=== PATIENT | female | born 1960 | race Caucasian/White ===

== ENCOUNTER 2017-09-29 10:29 | Day surgery (SDC) | payer OTHER ==
[2017-09-29] MEDS: NS 1,000 ML IV (10:40)
[2017-09-29] MEDS ORDERED: PROPOFOL 200 MG/20 ML VIAL As Ordered ×2 (11:02→11:03)
[2017-09-29] MEDS ORDERED: LIDOCAINE 2% INJ 100 MG/5 ML SDV (FOR ANES.) As Ordered (11:03)
== END 2017-09-29 12:35 | disposition home or self-care (01) ==
LOC: M OPP 10:29
DX: Z12.11 Encounter for screening for malignant neoplasm of colon (principal); Z86.010 Personal history of colon polyps; K57.30 Diverticulosis of large intestine without perforation or abscess without bleeding; G47.30 Sleep apnea, unspecified; E78.00 Pure hypercholesterolemia, unspecified; M12.9 Arthropathy, unspecified; Z79.82 Long term (current) use of aspirin; Z79.899 Other long term (current) drug therapy; Z88.8 Allergy status to other drugs, medicaments and biological substances; Z90.710 Acquired absence of both cervix and uterus; Z87.891 Personal history of nicotine dependence; Z87.442 Personal history of urinary calculi
CPT/HCPCS: 45378

== ENCOUNTER → 2017-11-24 | Outpatient (REF) | payer OTHER ==
[2017-11-28 00:07] LABS: A1A FOR PHENOTYPE 130 mg/dL (90-200)
== END ==
LOC: M LAB REF 13:10
DX: Z83.49 Family history of other endocrine, nutritional and metabolic diseases (principal)

== ENCOUNTER → 2018-09-26 | Outpatient (CLI) | payer OTHER ==
[~2018-09-26] MED LIST: /HYDR.5CR EXT; ASPI81CH33 PO; ASPI81TA7 PO; BACL-60 GT; BACL10TA2 PO; BACL1TAB9 PO; DIOV80TA2 PO; FURO20TA2 PO; LASI20TA3 PO; LOSA100T PO; MULTCAP PO; SIMV40TA2 PO; SIMV40TA20 PO; VALS160T PO; VALS80TA PO; VIBR100C PO; VITA200015 PO; VITAMIN D 3
[2018-09-29 14:07] LABS: Lyme Disease IgG Ab 18 kDa Ban Present (.); Lyme Disease IgG Ab 23 kDa Ban Present (.); Lyme Disease IgG Ab 28 kDa Ban Present (.); Lyme Disease IgG Ab 30 kDa Ban Absent (.); Lyme Disease IgG Ab 39 kDa Ban Present (.); Lyme Disease IgG Ab 41 kDa Ban Present (.); Lyme Disease IgG Ab 45 kDa Ban Absent (.); Lyme Disease IgG Ab 58 kDa Ban Absent (.); Lyme Disease IgG Ab 66 kDa Ban Absent (.); Lyme Disease IgG Ab 93 kDa Ban Absent (.); Lyme Disease IgG West Blot Int Positive (.); Lyme Disease IgG/IgM Antibodie 2.85 ISR (0.00-0.90); Lyme Disease IgM Ab 23 kDa Ban Present (.); Lyme Disease IgM Ab 39 kDa Ban Absent (.); Lyme Disease IgM Ab 41 kDa Ban Absent (.); Lyme Disease IgM Ab Quantitati 2.24 index (0.00-0.79); Lyme Disease IgM West Blot Int Negative (.)
== END ==
LOC: M WUC 14:12
PROVIDERS: ATTEND Physician Assistant
DX: L03.113 Cellulitis of right upper limb (principal); S40.861A Insect bite (nonvenomous) of right upper arm, initial encounter; X58.XXXA Exposure to other specified factors, initial encounter; Y92.89 Other specified places as the place of occurrence of the external cause

== ENCOUNTER → 2020-06-08 | Outpatient (CLI) | payer OTHER ==
[2020-06-08 17:22] LABS: ALBUMIN 3.7 GM/DL (3.2-5.2); ALT/SGPT 128 U/L (12-78); BILIRUBIN,TOTAL 0.5 MG/DL (0.2-1.0); BLOOD UREA NITROGEN 15 MG/DL (7-18); CALCIUM LEVEL 9.1 MG/DL (8.5-10.1); CARBON DIOXIDE LEVEL 29 MEQ/L (21-32); CHLORIDE LEVEL 108 MEQ/L (98-107); CREATININE FOR GFR 0.72 MG/DL (0.55-1.30); GLOMERULAR FILTRATION RATE > 60.0 (>51); GLUCOSE, FASTING 95 MG/DL (70-100); MAGNESIUM LEVEL 2.1 MG/DL (1.8-2.4); NT-PRO BNP 1118 PG/ML (<125); POTASSIUM SERUM 4.6 MEQ/L (3.5-5.1); SODIUM LEVEL 142 MEQ/L (136-145); TOTAL PROTEIN 6.7 GM/DL (6.4-8.2)
--- NOTE | 2020-06-08 17:53 | REP ---
INDICATION: HEART FAILURE, UNSPECIFIED / LABS 1ST COMPARISON: 12/23/2010. TECHNIQUE: PA/Lateral FINDINGS: Lungs: Clear, no infiltrate. Heart: Upper limits of normal in size. Mediastinum: Mediastinal silhouette unremarkable. Pleural angles: Unremarkable.. Bones and soft tissues: There are degenerative changes of the spine without compression deformity.r IMPRESSION: No acute pulmonary disease. <Electronically signed by Paulino Ledezma > 06/08/20 [id number]
== END ==
LOC: M LAB 15:55
PROVIDERS: ATTEND Internal Medicine Cardiovascular Disease
DX: I50.9 Heart failure, unspecified (principal)

== ENCOUNTER → 2020-06-13 | Outpatient (CLI) | payer OTHER ==
[2020-06-13 12:04] LABS: ALBUMIN 4.1 GM/DL (3.2-5.2); BLOOD UREA NITROGEN 14 MG/DL (7-18); CALCIUM LEVEL 9.8 MG/DL (8.5-10.1); CARBON DIOXIDE LEVEL 28 MEQ/L (21-32); CHLORIDE LEVEL 104 MEQ/L (98-107); GLOMERULAR FILTRATION RATE > 60.0 (>51); GLUCOSE, FASTING 106 MG/DL (70-100); PHOSPHORUS LEVEL 3.2 MG/DL (2.5-4.9); POTASSIUM SERUM 4.4 MEQ/L (3.5-5.1); SODIUM LEVEL 137 MEQ/L (136-145)
== END ==
LOC: M WUC 10:20
PROVIDERS: ATTEND Internal Medicine Cardiovascular Disease
DX: I50.9 Heart failure, unspecified (principal)

== ENCOUNTER 2020-06-22 18:55 | Emergency (ER) | payer OTHER ==
[~2020-06-22] VITALS: Ht 170.2 cm; Wt 118.7 kg
[2020-06-22] MEDS ORDERED: METO1TAB7 (19:04)
[2020-06-22] MEDS ORDERED: TORS10TA3 (19:04)
[2020-06-22] MEDS ORDERED: DIGO0.253 (19:04)
[2020-06-22] MEDS ORDERED: VALS1TAB66 (19:04)
[2020-06-22] MEDS ORDERED: SPIR-10 (19:04)
[2020-06-22] MEDS ORDERED: NS 1,000 ML IV ONE (19:35)
[2020-06-22] MEDS ORDERED: ONDANSETRON 4MG/2ML VIAL IV ONE (19:35)
[2020-06-22 20:16] LABS: BASO # 0.1 10^3/uL (0.0-0.2); BASO % 0.7 % (0.0-1.0); EOS % 0.4 % (0.0-3.0); HEMATOCRIT 49.9 % (36.0-47.0); HEMOGLOBIN 16.5 g/dl (12.0-15.5); LYMPH # 1.3 10^3/uL (1.5-5.0); MEAN CORPUSCULAR HEMOGLOBIN 29.2 pg (27.0-33.0); MEAN CORPUSCULAR HGB CONC 33.1 g/dl (32.0-36.5); MEAN CORPUSCULAR VOLUME 88.2 fl (80.0-96.0); MONO # 0.5 10^3/uL (0.0-0.8); MONO % 4.4 % (2.0-8.0); NEUTROPHILS # 8.7 10^3/uL (1.5-8.5); NEUTROPHILS % 82.1 % (36.0-66.0); PLATELET COUNT, AUTOMATED 267 10^3/uL (150-450); RED BLOOD COUNT 5.66 10^6/uL (4.00-5.40); WHITE BLOOD COUNT 10.5 10^3/uL (4.0-10.0)
[2020-06-22 20:41] LABS: ALBUMIN 4.1 GM/DL (3.2-5.2); BILIRUBIN,DIRECT 0.2 MG/DL (0.0-0.2); BILIRUBIN,TOTAL 0.6 MG/DL (0.2-1.0); TOTAL PROTEIN 7.3 GM/DL (6.4-8.2)
--- NOTE | 2020-06-22 21:06 | REPVR ---
PROCEDURE INFORMATION: Exam: CT Abdomen And Pelvis Without Contrast Exam date and time: 06/22/2020 7:54 PM Age: 59 years old Clinical indication: Left flank pain. TECHNIQUE: Imaging protocol: Computed tomography of the abdomen and pelvis without contrast. Radiation optimization: All CT scans at this facility use at least one of these dose optimization techniques: automated exposure control; mA and/or kV adjustment per patient size (includes targeted exams where dose is matched to clinical indication); or iterative reconstruction. COMPARISON: No relevant prior studies available. FINDINGS: Lungs: There is a 7 mm juxtapleural nodule along the right middle lobe (image 8 of the axial series 204), for which follow-up is not necessary. The lungs were not fully imaged. Heart: No cardiomegaly or pericardial effusion. Liver: Unremarkable. No liver lesion is identified. The contour of the liver is smooth. No hepatomegaly is noted. Gallbladder and bile ducts: No calcified gallstones are noted. No gallbladder wall thickening, pericholecystic fluid, or pericholecystic inflammatory changes are identified. No dilation of the bile ducts is noted. No calcified stones are seen in the common bile duct. Pancreas: Unremarkable. No dilation of the main pancreatic duct is noted. There is no inflammatory fat stranding around the pancreas to suggest acute pancreatitis. Spleen: Unremarkable. No splenomegaly is noted. Adrenal glands: Normal. No adrenal mass is noted. Kidneys and ureters: There is moderate left hydroureteronephrosis. There is a 3 mm calculus in the urethra (image 137 of the axial series 201, image 73 of the coronal series 202, and image 73 of the sagittal series 203). No calculi are noted in the left kidney or ureters. There is a 5 mm nonobstructive calculus in a lower pole calyx of the right kidney and a 4 mm nonobstructive calculus in an upper pole calyx of the right kidney. No right hydronephrosis or right hydroureter is noted. No renal lesion is identified. Stomach and bowel: The stomach is decompressed, limiting its optimal evaluation. The small bowel is unremarkable. There is colonic diverticulosis without evidence for diverticulitis. There is no evidence for a bowel obstruction, colitis, pneumatosis intestinalis, intussusception, volvulus, or perforated viscus. Appendix: The retrocecal appendix is normal. No evidence for appendicitis. Intraperitoneal space: No free air. No ascites. No abscess. Retroperitoneal space: No fluid collection. No mass. Vasculature: The abdominal aorta is normal in caliber. There are mild atherosclerotic calcifications. Lymph nodes: No enlarged lymph nodes. Urinary bladder: The urinary bladder is decompressed, limiting its optimal evaluation. No stones are seen in the bladder. Reproductive: There has been a hysterectomy. Bones/joints: There is no fracture or dislocation. There is a mild dextroscoliosis of the lumbar spine and degenerative changes in the lumbar spine. Degenerative changes of the pubic symphysis, sacroiliac joints, and both hip joints are also present. Soft tissues: Postoperative changes are noted from an umbilical hernia repair. No hernia or soft tissue fluid collection is noted. There is nonspecific edema in the subcutaneous tissues posteriorly along the midline of the lumbar spine. IMPRESSION: 1. Moderate left hydroureteronephrosis and a 3 mm calculus in the urethra. No calculi in the left kidney, ureters, or urinary bladder. 2. Nonobstructive right nephrolithiasis. 3. Colonic diverticulosis without evidence for diverticulitis. Electronically signed by: Danilo Granados On 06/22/2020 21:06:51 PM
[2020-06-22 21:31] VITALS: BP 134/97
== END 2020-06-22 21:36 | disposition home or self-care (01) ==
LOC: M ED 18:55
DX: N20.1 Calculus of ureter (principal); G47.33 Obstructive sleep apnea (adult) (pediatric); I48.91 Unspecified atrial fibrillation; I10 Essential (primary) hypertension; Z79.82 Long term (current) use of aspirin; Z79.899 Other long term (current) drug therapy; Z88.1 Allergy status to other antibiotic agents; Z88.2 Allergy status to sulfonamides
CPT/HCPCS: 74176; 80047; 80076; 81001; 83690; 85025; 87086; 96361; 96374; 99284; J2405

== ENCOUNTER → 2020-07-17 | Outpatient (CLI) | payer OTHER ==
[~2020-07-17] MED LIST changes: +DIGO0.253; +METO1TAB7; +SPIR-10; +TORS10TA3; +VALS1TAB66
--- NOTE | 2020-07-17 16:06 | REP ---
INDICATION: OTHER NON SPECIFIC ABNORMAL FINDING OF LUNG FIELD COMPARISON: Abdominal CT dated 06/22/2020, 05/05/2011 TECHNIQUE: Axial noncontrast images from the thoracic inlet to the upper abdomen with coronal and sagittal reformations. This CT examination was performed using the following dose reduction techniques: Automated exposure control, adjustment of mA and/or kv according to the patient's size, and use of iterative reconstruction technique. FINDINGS: The bilateral lung harris are relatively well aerated, symmetric and essentially clear. A small triangular 7 mm subpleural density along the anterior margin of the right middle lobe (series 201, image 68) is essentially unchanged through 2011 and likely represents small scar. No further acute consolidation, significant nodule, or mass. No effusion. No pneumothorax. Tracheobronchial tree is patent. The mediastinum demonstrates normal thoracic aorta, pulmonary vasculature, and heart/pericardium. Atherosclerotic changes to the coronary arteries is noted. No pericardial effusion. Musculoskeletal structures demonstrate degenerative changes without acute osseous abnormality. IMPRESSION: 1. Small subpleural density along the anterior right middle lobe remains stable compared to 04/03 and consistent with small scar. 2. No acute mediastinal or pleuroparenchymal process. <Electronically signed by Flako Herrera > 07/17/20 [id number]
== END ==
LOC: M RAD 10:51
PROVIDERS: ATTEND Nurse Practitioner Adult Health
DX: R91.8 Other nonspecific abnormal finding of lung field (principal)

== ENCOUNTER → 2020-07-27 | Outpatient (CLI) | payer OTHER | LOC: M LABSMTC 11:38 | PROVIDERS: ATTEND Internal Medicine Cardiovascular Disease | DX: Z01.810 Encounter for preprocedural cardiovascular examination (principal); Z20.822 Contact with and (suspected) exposure to COVID-19 ==

== ENCOUNTER → 2020-10-01 | Outpatient (CLI) | payer OTHER ==
[2020-10-01 15:32] LABS: ALBUMIN 3.6 GM/DL (3.2-5.2); BLOOD UREA NITROGEN 10 MG/DL (7-18); CALCIUM LEVEL 9.1 MG/DL (8.5-10.1); CARBON DIOXIDE LEVEL 30 MEQ/L (21-32); CHLORIDE LEVEL 104 MEQ/L (98-107); GLOMERULAR FILTRATION RATE > 60.0 (>51); GLUCOSE, FASTING 112 MG/DL (70-100); NT-PRO BNP 599 PG/ML (<125); PHOSPHORUS LEVEL 2.8 MG/DL (2.5-4.9); POTASSIUM SERUM 3.8 MEQ/L (3.5-5.1); SODIUM LEVEL 139 MEQ/L (136-145)
== END ==
LOC: M LAB 14:06
PROVIDERS: ATTEND Internal Medicine Cardiovascular Disease
DX: I50.32 Chronic diastolic (congestive) heart failure (principal); I48.19 Other persistent atrial fibrillation

== ENCOUNTER → 2020-10-17 | Outpatient (CLI) | payer OTHER | LOC: M LABSMTC 13:06 | PROVIDERS: ATTEND Anesthesiology | DX: Z01.812 Encounter for preprocedural laboratory examination (principal) ==

== ENCOUNTER 2020-10-22 14:18 | Day surgery (SDC) | payer OTHER ==
[~2020-10-22] VITALS: Ht 170.2 cm; Wt 110.7 kg
[~2020-10-22 14:18] MED LIST changes: +FLEC100T27 PO; +LIDOCAINE 1% MDV 20ML VIAL SQ PRN; +LR 1,000 ML IV ONE; +TOPR25TA PO; +XARE20TA PO
[2020-10-22] MEDS ORDERED: VITMTA PO (14:52)
[2020-10-22] MEDS ORDERED: VITA200048 PO (14:52)
[2020-10-22] MEDS ORDERED: SPIR-10 PO (14:52)
[2020-10-22 15:13] LABS: INR 1.31; PARTIAL THROMBOPLASTIN TIME 38.3 SECONDS (25.9-37.0); PROTHROMBIN TIME 16.7 SECONDS (12.7-14.5)
[2020-10-22] MEDS ORDERED: LIDOCAINE 2% 100MG/5ML SDV (FOR ANES.) As Ordered ONE (16:47)
[2020-10-22] MEDS ORDERED: propofoL 200 MG/20 ML VIAL As Ordered ONE (16:47)
[2020-10-22 18:30] VITALS: BP 120/56
--- NOTE | 2020-10-22 20:09 | ECGEPIP ---
[facility] Test Date: 2020-10-22 Pat Name: KENDELL CRUZ Department: Room: - Gender: Female Clin Tech: CATIE : 1960 Requested By: Antonio Grove Order Number: [id number] Reading MD: Antonio Grove Measurements Intervals [place] Rate: 71 P: 17 [place]: 202 QRS: -15 QRSD: 102 T: 36 QT: 428 QTc: 465 Interpretive Statements normal sinus rhythm LA conduction disturbance. First-degree AV block. Low voltages with incomplete RBBB, slow precordial R wave progression, persistent S waves V5 and V6, and QS pattern in leads III and aVF; body habitus versus pulmonary disease. Could not rule out prior septal or inferior myocardial infarction. Nonspecific ST/T wave abnormalities. No prior tracing for comparison Clinical correlation advised Electronically Signed on 10-22-2020 20:09:08 EDT by Antonio Grove
--- NOTE | 2020-10-23 09:48 | RO ---
OPERATIVE NOTE DATE OF OPERATION: 10/22/2020 PREOPERATIVE DIAGNOSIS: POSTOPERATIVE DIAGNOSIS: PROCEDURE: Direct current cardioversion. SURGEON (CURING PRESS OPERATOR): Antonio Grove MD ORE FEEDER: ANESTHESIA: INDICATION: 1. Refractory atrial fibrillation. 2. Heart failure (diastolic dysfunction) - chronic. 3. Hypertensive heart disease. 4. Chronic pulmonary heart disease. 5. Obstructive sleep apnea. 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 August 01, 2020 underwent cardiac catheterization for chest pain and abnormal stress heart scan which showed normal left ventricular wall motion and coronary arteries. Has multiple coronary risk factors including age, obesity, hypercholesterolemia, hypertension and former smoking. Has had sustained atrial fibrillation since May 2020. Has been on rate-control medications and anticoagulation with subsequent trial of flecainide antiarrhythmic therapy. Echocardiogram of May 16, 2020 showed mild left ventricular hypertrophy with normal wall motion, moderate left atrial enlargement with LV diastolic dysfunction, mildly dilated right heart chambers with normal wall motion and pulmonary arterial pressure 40 mmHg. Moderate right atrial and IVC enlargement with reduced respiratory collapse, normal aortic dimensions and mild mitral annular thickening with very mild mitral insufficiency. The dosage of her flecainide has been gradually increased and at her last office visit, October 10, 2020, was still found to be in atrial fibrillation. Despite rate-control medications, she continues to be bothered by palpitations, and has been free of other cardiovascular complaint. On examination, she is a pleasant, obese, middle-age woman. Heart rate 81 beats per minute and a regular blood pressure of 128/70 sitting. Respiratory rate 18. BMI 38.8. No pallor or cyanosis. Trachea midline. Neck veins were currently 2-3 cm above the sternal angle. Thyroid was not enlarged. Increased anteroposterior chest diameter with adequate respiratory chest expansion. Somewhat decreased breath sounds but no inspiratory rales or rhonchi. Distant heart sounds that were variable. No audible gallops or murmurs. Soft, obese abdomen. No current dependent edema. Normal pedal pulses. EKG October 10, 2020 showed underlying atrial fibrillation with controlled ventricular response at 81 beats per minute, low voltages with incomplete right bundle branch block, slow precordial R wave progression and persistent S waves in V5 and V6 in keeping with body habitus versus pulmonary disease. Nonspecific ST-T wave abnormalities. No change from September 20, 2020 despite increased flecainide dosage. Chest x-ray on June 08, 2020 - PA and left lateral study showed borderline cardiomegaly with normal greater vessels and clear lung harris with no pleural effusions, some degenerative changes of thoracic spine. Blood work, October 01, showed normal complete blood count. Electrolytes were in balance with potassium 3.8, calcium 9.1, BUN 10, creatinine 0.8. Random glucose 112. Total BNP level was elevated at 599 (down from 1118 on June 08, 2020) Trough flecainide level was 0.38. PT/PTT were normal. DESCRIPTION OF PROCEDURE: Following informed consent with the patient in the fasting state, she was taken to recovery and connected to a bedside EKG, blood pressure, and O2 sat monitoring system. An IV was placed in a large left forearm vein. Self-adhesive cardioverting/defibrillating pads were applied in an anteroposterior configuration and connected to a bedside cardioverter/defibrillator. Bedside monitor confirmed ongoing atrial fibrillation with reasonably controlled ventricular response. At this point, anesthesia administered IV conscious sedation. Once her awareness was blunted, a single synchronized direct current shock was administered (biphasic) at 200 joules (in light of her body habitus). This successfully converted her to a sinus mechanism at 56 beats per minute. She had an obvious left atrial conduction disturbance and other findings were not significantly changed from her preprocedure tracing. Within minutes, the patient's awareness was restored, heart rate 56 beats per minute, blood pressure 127/76, O2 saturation with supplemental oxygen was 96%. Her IV will be discontinued once she is able to tolerate p.o. She will be discharged home at that time on the same dietary measures - restricted caloric and sodium. We request that she perform only light activities of daily living today and resume her customary activities tomorrow. Her medications will include: 1. Metoprolol succinate 25 mg twice a day (b.i.d) 2. Digoxin 0.25 mg daily 3. Flecainide 100 mg p.o. twice a day (b.i.d.) 4. Xarelto 20 mg daily 5. Torsemide 10 mg daily p.r.n. edema 6. Spironolactone 12.5 mg daily 7. Simvastatin 40 mg at night (q.h.s.). She has been given a followup appointment in our office for November 05, 2020 at 2:15 p.m. We have encouraged her to contact us promptly for any questions or concerns.
== END 2020-10-22 18:55 | disposition home or self-care (01) ==
LOC: M SDC 14:18
PROVIDERS: ATTEND Internal Medicine Cardiovascular Disease
DX: I48.19 Other persistent atrial fibrillation (principal); I50.32 Chronic diastolic (congestive) heart failure; I11.0 Hypertensive heart disease with heart failure; I27.9 Pulmonary heart disease, unspecified; G47.33 Obstructive sleep apnea (adult) (pediatric); Z79.01 Long term (current) use of anticoagulants; Z79.899 Other long term (current) drug therapy; Z88.2 Allergy status to sulfonamides; Z87.891 Personal history of nicotine dependence; Z85.42 Personal history of malignant neoplasm of other parts of uterus

== ENCOUNTER → 2021-04-22 | Outpatient (REF) | payer OTHER ==
[~2021-04-22] MED LIST changes: -LIDOCAINE 1% MDV 20ML VIAL SQ PRN; -LR 1,000 ML IV ONE; +SPIR-10 PO; +VITA200048 PO; +VITMTA PO
== END ==
LOC: M LAB REF 15:50
PROVIDERS: ATTEND Physician Assistant
DX: N39.0 Urinary tract infection, site not specified (principal)

== ENCOUNTER → 2021-07-18 | Outpatient (CLI) | payer OTHER | LOC: M PLAIMG 10:20 | PROVIDERS: ATTEND Nurse Practitioner Adult Health | DX: R91.8 Other nonspecific abnormal finding of lung field (principal) ==

== ENCOUNTER → 2021-08-01 | Outpatient (CLI) | payer OTHER | LOC: M WHC 08:30 | PROVIDERS: ATTEND Family Medicine | DX: R74.01 Elevation of levels of liver transaminase levels (principal); K76.0 Fatty (change of) liver, not elsewhere classified ==

== ENCOUNTER → 2021-08-19 | Outpatient (CLI) | payer OTHER | LOC: M WHC 07:05 | PROVIDERS: ATTEND Family Medicine | DX: Z12.31 Encounter for screening mammogram for malignant neoplasm of breast (principal) ==

== ENCOUNTER → 2022-04-30 | Outpatient (REF) | payer OTHER | LOC: M LAB REF 18:46 | PROVIDERS: ATTEND Physician Assistant | DX: R30.0 Dysuria (principal) ==

== ENCOUNTER → 2022-05-19 | Outpatient (REF) | payer OTHER | LOC: M WUC 19:53 | PROVIDERS: ATTEND Physician Assistant | DX: R30.0 Dysuria (principal) ==

== ENCOUNTER → 2022-08-04 | Outpatient (REF) | payer OTHER | LOC: M LAB REF 16:19 | PROVIDERS: ATTEND Family Medicine | DX: R74.01 Elevation of levels of liver transaminase levels (principal) ==

== ENCOUNTER → 2022-08-08 | Outpatient (CLI) | payer OTHER | LOC: M PLAIMG 10:00 | PROVIDERS: ATTEND Nurse Practitioner Adult Health | DX: R91.8 Other nonspecific abnormal finding of lung field (principal) ==

== ENCOUNTER → 2022-08-25 | Outpatient (CLI) | payer OTHER | LOC: M WHC 13:38 | PROVIDERS: ATTEND Family Medicine | DX: Z12.31 Encounter for screening mammogram for malignant neoplasm of breast (principal) ==

== ENCOUNTER → 2022-09-11 | Outpatient (CLI) | payer OTHER | LOC: M WHC 09:12 | PROVIDERS: ATTEND Family Medicine | DX: Z12.31 Encounter for screening mammogram for malignant neoplasm of breast (principal) | CPT/HCPCS: 77065; G0279 ==

== ENCOUNTER → 2022-11-13 | Outpatient (CLI) | payer OTHER ==
[2022-11-13 12:24] LABS: BASO # 0.1 10^3/uL (0.0-0.2); BASO % 0.7 % (0.0-1.0); EOS # 0.2 10^3/uL (0.0-0.5); EOS % 2.4 % (0.0-3.0); HEMATOCRIT 43.1 % (36.0-47.0); HEMOGLOBIN 14.5 g/dl (12.0-15.5); LYMPH # 1.9 10^3/uL (1.5-5.0); LYMPH % 22.7 % (24.0-44.0); MEAN CORPUSCULAR HEMOGLOBIN 30.1 pg (27.0-33.0); MEAN CORPUSCULAR HGB CONC 33.6 g/dl (32.0-36.5); MEAN CORPUSCULAR VOLUME 89.6 fl (80.0-96.0); MONO # 0.6 10^3/uL (0.0-0.8); MONO % 7.7 % (2.0-8.0); NEUTROPHILS # 5.5 10^3/uL (1.5-8.5); NEUTROPHILS % 66.1 % (36.0-66.0); PLATELET COUNT, AUTOMATED 249 10^3/uL (150-450); RED BLOOD COUNT 4.81 10^6/uL (4.00-5.40); WHITE BLOOD COUNT 8.3 10^3/uL (4.0-10.0)
[2022-11-13 13:06] LABS: ALBUMIN 3.5 G/DL (3.2-5.2); ALKALINE PHOSPHATASE 87 U/L (46-116); ALT/SGPT 110 U/L (7.0-40); AST/SGOT 84 U/L (<34); BILIRUBIN,TOTAL 0.7 MG/DL (0.3-1.2); BLOOD UREA NITROGEN 10 MG/DL (9-23); CALCIUM LEVEL 9.1 MG/DL (8.3-10.6); CARBON DIOXIDE LEVEL 28 MMOL/L (20-31); CHLORIDE LEVEL 105 MMOL/L (98-107); CREATININE FOR GFR 0.61 MG/DL (0.55-1.30); GLOMERULAR FILTRATION RATE > 60.0 (>45); GLUCOSE, FASTING 204 MG/DL (74-106); POTASSIUM SERUM 4.4 MMOL/L (3.5-5.1); SODIUM LEVEL 139 MMOL/L (136-145); TOTAL PROTEIN 6.6 G/DL (5.7-8.2)
[2022-11-13 13:13] LABS: HEMOGLOBIN A1c 8.4 % (4.0-6.0)
== END ==
LOC: M LAB 11:59
PROVIDERS: ATTEND Internal Medicine Cardiovascular Disease
DX: I48.0 Paroxysmal atrial fibrillation (principal); R01.1 Cardiac murmur, unspecified; I50.32 Chronic diastolic (congestive) heart failure; I11.0 Hypertensive heart disease with heart failure; I27.81 Cor pulmonale (chronic); E78.2 Mixed hyperlipidemia

== ENCOUNTER → 2022-12-22 | Outpatient (REF) | payer OTHER | LOC: M LAB REF 16:13 | PROVIDERS: ATTEND Student in an Organized Health Care Education/Training Program | DX: R30.0 Dysuria (principal) ==

== ENCOUNTER → 2023-04-06 | Outpatient (REF) | payer OTHER | LOC: M LAB REF 11:56 | PROVIDERS: ATTEND Family Medicine | DX: I50.32 Chronic diastolic (congestive) heart failure (principal) ==

== ENCOUNTER → 2024-01-21 | Outpatient (REF) | payer OTHER | LOC: M LAB REF 12:56 | PROVIDERS: ATTEND Family Medicine | DX: R74.01 Elevation of levels of liver transaminase levels (principal) ==

== ENCOUNTER → 2024-03-01 | Outpatient (CLI) | payer OTHER | LOC: M EKG 14:06 | PROVIDERS: ATTEND Registered Nurse | DX: I48.0 Paroxysmal atrial fibrillation (principal) ==

== ENCOUNTER → 2024-04-07 | Outpatient (CLI) | payer OTHER | LOC: M EKG 10:26 | PROVIDERS: ATTEND Registered Nurse | DX: I48.0 Paroxysmal atrial fibrillation (principal) ==

== ENCOUNTER → 2024-08-01 | Outpatient (CLI) | payer OTHER | LOC: M RAD 17:33 | PROVIDERS: ATTEND Physician Assistant Medical | DX: N20.0 Calculus of kidney (principal) ==

== ENCOUNTER 2024-09-15 08:47 | Day surgery (SDC) | payer OTHER ==
[~2024-09-15] VITALS: Ht 170.2 cm; Wt 112.9 kg
[2024-09-15] MEDS ORDERED: VALS1TAB66 PO (09:21)
[2024-09-15] MEDS ORDERED: SEMA0.257 SC (09:21)
[2024-09-15] MEDS ORDERED: PROMETHAZINE 25MG/ML 1ML VIAL IV PRN (09:35)
[2024-09-15] MEDS ORDERED: ONDANSETRON 4MG 2ML VIAL IV PRN (09:35)
[2024-09-15 10:51] LABS: CALCIUM LEVEL 9.3 MG/DL (8.3-10.6); CARBON DIOXIDE LEVEL 27 MMOL/L (20-31); CHLORIDE LEVEL 106 MMOL/L (98-107); CREATININE FOR GFR 0.71 MG/DL (0.55-1.30); GLOMERULAR FILTRATION RATE > 90.0 (>45); MAGNESIUM LEVEL 2.0 MG/DL (1.8-2.4); POTASSIUM SERUM 4.4 MMOL/L (3.5-5.1); SODIUM LEVEL 144 MMOL/L (136-145)
[2024-09-15 11:33] VITALS: BP 111/68; TEMP 97.8; O2SAT 97
== END 2024-09-15 11:44 | disposition home or self-care (01) ==
LOC: M SDC 08:47
PROVIDERS: ATTEND Internal Medicine Cardiovascular Disease
DX: I48.19 Other persistent atrial fibrillation (principal); I11.9 Hypertensive heart disease without heart failure; I27.9 Pulmonary heart disease, unspecified; G47.33 Obstructive sleep apnea (adult) (pediatric); E66.9 Obesity, unspecified; Z79.01 Long term (current) use of anticoagulants; Z79.899 Other long term (current) drug therapy

== ENCOUNTER → 2024-10-13 | Outpatient (REF) | payer OTHER ==
[~2024-10-13] MED LIST changes: +SEMA0.257 SC; +VALS1TAB66 PO
== END ==
LOC: M LAB REF 17:16
PROVIDERS: ATTEND Nurse Practitioner Family
DX: R30.0 Dysuria (principal)

== ENCOUNTER → 2025-02-11 | Outpatient (CLI) | payer OTHER | LOC: M RAD 15:15 | PROVIDERS: ATTEND Physician Assistant Medical | DX: N20.0 Calculus of kidney (principal) ==